=== PATIENT | female | born 1955 | race Caucasian/White ===

== ENCOUNTER → 2016-09-26 | Outpatient (CLI) | payer OTHER ==
[2016-09-26 15:56] LABS: Basophils % (A) 0 %; CHCM 33.5; Eosinophils # (A) 0.1 k/uL (0-0.7); Eosinophils % (A) 2 %; HCT 39.6 % (34.0-46.0); HDW 2.82; HGB 13.2 gm/dL (11.4-16.0); Luc # (Auto) 0.15; Luc % (Auto) 3; Lymphocytes # (A) 0.8 k/uL (1.0-4.8); Lymphocytes % (A) 16 %; MCH 34.1 pg (25.0-35.0); MCHC 33.3 g/dL (31.0-37.0); MCV 102.2 fL (80.0-100.0); Macrocytosis Slight; Mean Platelet Volume 8.2; Monocytes # (A) 0.3 k/uL (0-1.0); Monocytes % (A) 6 %; Neutrophils # (A) 3.7 k/uL (1.3-7.7); Neutrophils % (A) 72 %; RBC 3.88 m/uL (3.80-5.40); RDW 12.7 % (11.5-15.5); WBC 5.1 k/uL (3.8-10.6); WBC (Perox) 5.54
[2016-09-26 16:11] LABS: Chloride 104 mmol/L (98-107); Glucose 84 mg/dL (74-99); Sodium 142 mmol/L (137-145); Total Protein 7.2 g/dL (6.3-8.2)
[2016-09-26 16:12] LABS: ALT 24 U/L (9-52); AST 37 U/L (14-36); Alkaline Phosphatase 75 U/L (38-126); Anion Gap 8 mmol/L; Blood Urea Nitrogen 12 mg/dL (7-17); Carbon Dioxide 30 mmol/L (22-30); Non-African American GFR(MDRD) >60 (>60 ml/min/1.73 sqM); Potassium 4.5 mmol/L (3.5-5.1); Total Bilirubin 0.4 mg/dL (0.2-1.3)
== END | disposition home or self-care (01) ==
LOC: LABWHC1 15:31
PROVIDERS: ATTEND Internal Medicine Gastroenterology
DX: K50.90 Crohn's disease, unspecified, without complications (principal)
CPT/HCPCS: 36415; 80053; 85025

== ENCOUNTER → 2017-01-26 | Outpatient (CLI) | payer OTHER ==
[2017-01-26 14:51] LABS: Basophils % (A) 0 %; CH 33.3; Eosinophils # (A) 0.1 k/uL (0-0.7); Eosinophils % (A) 2 %; HCT 39.1 % (34.0-46.0); HDW 2.76; HGB 13.5 gm/dL (11.4-16.0); Luc % (Auto) 2; Lymphocytes % (A) 19 %; MCHC 34.5 g/dL (31.0-37.0); MCV 98.6 fL (80.0-100.0); Mean Platelet Volume 7.8; Monocytes # (A) 0.4 k/uL (0-1.0); Monocytes % (A) 7 %; Neutrophils # (A) 3.9 k/uL (1.3-7.7); Neutrophils % (A) 70 %; RBC 3.97 m/uL (3.80-5.40); RDW 12.9 % (11.5-15.5); WBC 5.6 k/uL (3.8-10.6); WBC (Perox) 5.58
[2017-01-26 15:04] LABS: ALT 33 U/L (9-52); AST 31 U/L (14-36); Alkaline Phosphatase 72 U/L (38-126); Anion Gap 10 mmol/L; Blood Urea Nitrogen 11 mg/dL (7-17); C Reactive Protein <5.0 mg/L (<10.0); Calcium 8.9 mg/dL (8.4-10.2); Carbon Dioxide 27 mmol/L (22-30); Chloride 104 mmol/L (98-107); Glucose 80 mg/dL (74-99); Non-African American GFR(MDRD) >60 (>60 ml/min/1.73 sqM); Potassium 4.4 mmol/L (3.5-5.1); Sodium 141 mmol/L (137-145); Total Bilirubin 0.3 mg/dL (0.2-1.3); Total Protein 7.2 g/dL (6.3-8.2)
[2017-01-26 15:34] LABS: Erythrocyte Sedimentation Rate 18 mm/hr (0-20)
== END | disposition home or self-care (01) ==
LOC: LABWHC1 14:35
PROVIDERS: ATTEND Internal Medicine Gastroenterology
DX: K50.90 Crohn's disease, unspecified, without complications (principal)
CPT/HCPCS: 36415; 80053; 85025; 85652; 86140

== ENCOUNTER → 2017-02-09 | Outpatient (CLI) | payer OTHER ==
[2017-02-09 15:47] LABS: Appearance,Urine Clear (Clear); Bilirubin,Urine Negative (Negative); Glucose,Urine (UA) Negative (Negative); Ketones,Urine Negative (Negative); Leukocyte Esterase,Urine Negative (Negative); Nitrite,Urine Negative (Negative); Protein,Urine Negative (Negative); Specific Gravity,Urine 1.002 (1.001-1.035); UA Billing (MACRO vs. MICRO) CHEM; Urobilinogen,Urine <2.0 mg/dL (<2.0)
== END ==
LOC: LABWHC1 15:24
PROVIDERS: ATTEND Obstetrics & Gynecology
DX: R39.11 Hesitancy of micturition (principal)
CPT/HCPCS: 81003; 87086

== ENCOUNTER → 2017-04-18 | Outpatient (CLI) | payer OTHER ==
--- NOTE | 2017-04-18 15:54 | XR ---
Abdomen HISTORY: Stone Frontal view of the abdomen correlated to prior exam 07/26/2010 Surgical clip persists in the right upper quadrant. NG tube has been removed. There is a spinal curva ture present. Probable vascular calcifications are present within the pelvis. There is no evident bow el obstruction or pneumoperitoneum. Amorphous metallic densities in the right hemipelvis is indetermi cash, I question prior surgery, correlate. Lung bases are not included on the exam. IMPRESSION: Nonobstructive bowel gas pattern and additional findings above.
== END | disposition home or self-care (01) ==
LOC: RADXRMAIN 15:15
PROVIDERS: ATTEND Urology
DX: N20.0 Calculus of kidney (principal)
CPT/HCPCS: 74000

== ENCOUNTER → 2017-07-04 | Outpatient (CLI) | payer OTHER ==
--- NOTE | 2017-07-04 13:44 | MR ---
EXAMINATION TYPE: MR cervical spine wo con DATE OF EXAM: 07/04/2017 1:25 PM COMPARISON: NONE HISTORY: Neck Pain Multiplanar MultiSpin echo imaging of the cervical spine was performed. Comparison: none C2-C3: No evidence for degenerative disc disease. No disc bulge/herniation or protrusion. No Canal stenosis. Foramina are patent bilaterally. C3-C4: Mild disc desiccation mild circumferential disc bulge. Mild effacement ventral thecal sac. No evidence for herniation or protrusion. No central stenosis. Degenerative change cervical apophyseal j oints with mild left foraminal encroachment. C4-C5: Mild disc desiccation mild circumferential disc bulge. Mild effacement ventral thecal sac. No evidence for herniation or protrusion. No central stenosis. Degenerative change cervical apophyseal j oints with mild left foraminal encroachment. C5-C6: Moderate disc desiccation. Posterocentral disc bulge with partial encapsulating spur resulting in disc endplate complex. Effacement of the ventral thecal sac with mild constriction seen resulting in borderline stenosis. Degenerative change cervical apophyseal joints resulting in bilateral forami nal encroachment right greater than left. C6-C7: Mild to moderate the disc desiccation. The posterior disc bulge with encapsulating spur result ing in disc endplate complex. Mild effacement ventral thecal sac. No evidence for central stenosis. F oramina are patent bilaterally. C7-T1: No evidence for degenerative disc disease. No disc bulge/herniation or protrusion. No Canal stenosis. Foramina are patent bilaterally. Cervical segments are intact. There is normal alignment. Cervical spinal cord is of normal signal. Craniovertebral junction relationships are within normal limits. IMPRESSION: 1. Multilevel degenerative disc disease. 2. Disc bulging with disc endplate complex as outlined above. Borderline to mild central stenosis at C5-6.
--- NOTE | 2017-07-04 15:23 | MR ---
EXAMINATION TYPE: MR lumbar spine wo/w con DATE OF EXAM: 07/04/2017 COMPARISON: NONE HISTORY: Lumbar Pain CONTRAST: 5.5 mL intravenous Gadavist. TECHNIQUE: Multiplanar, multisequence images of the lumbar spine were acquired. FINDINGS: L5-S1: There is loss of disc height to this level. No significant disc bulge is evident. Facets are n ormal. No spinal canal stenosis or neural foraminal stenosis is present. L4-L5: Mild residual disc bulge with narrowing of the disc height is present. This has mild anterior thecal sac flattening. Mild facet hypertrophy is present with right ligamentum flavum laxity with pos terior lateral thecal sac compression. No spinal canal stenosis present. Neural foramen are patent. L3-L4: Broad-based disc bulge is present with moderate anterior thecal sac flattening. Facet hypertro phy is present with posterior lateral thecal sac compression from ligamentum flavum laxity. This is g reater on the left than the right. Some lateral canal narrowing is present. No AP spinal canal stenos is is present. Foramen are patent. L2-L3: Some subtle asymmetric right paracentral disc bulging is present with mild anterior thecal sac compression. No spinal canal stenosis present. Facet hypertrophy and ligamentum flavum laxity is pre sent with mild posterior lateral thecal sac compression. Neural foramen are patent. L1-L2: Mild disc bulge has anterior thecal sac contact. No spinal canal stenosis or neural foraminal stenosis is present. T12-L1: No significant focal disc herniation or significant disc bulge is evident. No spinal canal st enosis present. Minimal ligamentum flavum laxity is present. There is heterogenous signal throughout the osseous structures compatible some marrow replacement. Pacheco spicious enhancement is not identified. IMPRESSION: 1. Broad-based disc bulge L3-4 with moderate anterior thecal sac compression. Facet hypertrophy and w ent flavum laxity are present with some lateral canal narrowing is present at this level. 2. Multilevel degenerative disc changes and disc desiccation without stenosis. 3. Mild right paracentral disc bulge L2-3 with mild anterior thecal sac compression.
== END | disposition home or self-care (01) ==
LOC: RADMRIMAIN 12:14
PROVIDERS: ATTEND Orthopaedic Surgery Orthopaedic Surgery of the Spine
DX: M48.02 Spinal stenosis, cervical region (principal); M50.11 Cervical disc disorder with radiculopathy, high cervical region; M48.061 Spinal stenosis, lumbar region without neurogenic claudication; M51.16 Intervertebral disc disorders with radiculopathy, lumbar region; M47.26 Other spondylosis with radiculopathy, lumbar region; M89.38 Hypertrophy of bone, other site
CPT/HCPCS: 72141; 72158; A9581

== ENCOUNTER → 2017-07-14 | Outpatient (CLI) | payer OTHER ==
--- NOTE | 2017-07-18 07:04 | US ---
EXAMINATION TYPE: US pelvic complete DATE OF EXAM: 07/14/2017 COMPARISON: CT CLINICAL HISTORY: R10.2 Pelvic Pain. Pt states pelvic pain, known h/o fibroids TECHNIQUE: Transabdominal (TA) Date of LMP: pt states 10 yrs ago EXAM MEASUREMENTS: Uterus: 6.8 x 3.3 x 4.8 cm Endometrial Stripe: 0.4 cm Right Ovary: 1.9 x 1.0 x 1.3 cm Left Ovary: 1.5 x 1.4 x 0.9 cm 1. Uterus: Anteverted Heterogeneous, two probable fibroids 1)= 2.6 x 2.0 x 2.0 cm (posterior camila l) 2)= 2.4 x 2.2 x 2.3 cm (central fundal). 2. Endometrium: scant amount of fluid within canal, otherwise appeared wnl 3. Right Ovary: wnl 4. Left Ovary: wnl 5. Bilateral Adnexa: wnl, many peristalsing bowel loops visualized 6. Posterior cul-de-sac: wnl IMPRESSION: 1. Posterior fundal and central fundal likely intramural uterine leiomyomas measuring up to 2.6 cm. 2. Endometrial thickness and ovaries are within normal limits.
== END | disposition home or self-care (01) ==
LOC: RADUSWWP 15:29
PROVIDERS: ATTEND Obstetrics & Gynecology
DX: R10.2 Pelvic and perineal pain (principal)
CPT/HCPCS: 76856

== ENCOUNTER → 2017-11-08 | Day surgery (SDC) | payer OTHER ==
[2017-11-02 10:42] VITALS: BMI 20.5
[~2017-11-08] MED LIST: MIDAZOLAM 2 MG/2 ML VIAL IVP ONE; MIDAZOLAM 2 MG/2 ML VIAL ONE; SODIUM CHLORIDE 0.9% 1,000 ML IV ONE; fentaNYL (PF) 50 MCG/ML 2 ML AMP ONE
[2017-11-08 12:24] VITALS: RESP 18
[2017-11-08] MEDS: BENZOCAINE SPRAY 1 CAN MUCOUS MEM ONE ×2 (13:10→13:14)
[2017-11-08] MEDS: fentaNYL (PF) 50 MCG/ML 2 ML AMP IVP ONE ×2 (13:14→13:26)
[2017-11-08] MEDS: MIDAZOLAM 2 MG/2 ML VIAL IVP ONE ×2 (13:14→13:16)
--- NOTE | 2017-11-08 14:09 | ECHOT ---
TRANSESOPHAGEAL ECHOCARDIOGRAM DATE OF SERVICE: November 08, 2017 PERFORMING PHYSICIAN: Donell Muller MD, seam stayer. PROCEDURE PERFORMED: Transesophageal echocardiogram. INDICATION: This is a pleasant 62-year-old female patient who does have moderate mitral regurgitation and mitral valve prolapse along with SVT, was experiencing progressive in the shortness of breath. On physical examination, the pansystolic murmur was more prominent. Because of that, a transesophageal echocardiogram was recommended for further evaluation of the mitral valve. COMPLICATION: None. LEVEL OF SEDATION: Moderate with sedation length of 15 minutes. PROCEDURE DESCRIPTION: After obtaining an informed consent, explaining the procedure, benefits, risks, complications and alternatives, the patient was brought to the transesophageal echocardiogram suite. A pulse oximetry and heart rate monitors were attached to the patient prior to the procedure. The patient's throat was sprayed using lidocaine locally. Following that, the patient was turned into left lateral position. A bite guard was placed and the patient was then sedated with the above doses of Versed and fentanyl in divided doses. Following that, the transesophageal echocardiogram probe was advanced through the bite guard into the mid esophagus where 2-D echocardiogram images as well as color Doppler images of various cardiac structures were obtained. We evaluated the interatrial septum using 2-D echocardiogram, color Doppler, and contrast study. The procedure was completed. There were no complications. FINDINGS: The left ventricular dimension and systolic function appeared to be within normal limits. The ejection fraction appeared to be in the range of 55% to 60%. Right ventricle appeared to be within normal limits for dimension as well as function. The left atrium appeared to be mildly dilated. The right atrium appeared to be within normal limits. The left atrial appendage appeared to be free from any thrombus. The interatrial septum appeared to be intact without any evidence of shunt. The aortic valve is trileaflet valve without stenosis with mild insufficiency. The mitral valve seems to be thickened and calcified with evidence of mitral valve prolapse and vi mitral valve leaflets especially the anterior mitral leaflets with evidence of severe mitral regurgitation with very eccentric posteriorly directed jet. The tricuspid valve and pulmonic valve appear to be within normal limits. CONCLUSION: 1. Myxomatous mitral valve with evidence of mitral valve prolapse with prolapsing of the anterior mitral leaflet and severe mitral regurgitation with posteriorly directed jet. 2. Normal left ventricular dimension and systolic function with ejection fraction of 55%. 3. Overall normal cardiac chamber sizes beside mild left atrial dilatation. 4. Normal left atrial appendage without any evidence of thrombus. 5. Intact interatrial septum without any evidence of shunt. 6. Normal trileaflet aortic valve with mild aortic valve regurgitation and without stenosis. 7. Normal tricuspid valve and pulmonic valve. 8. Normal aortic root dimension. 9. No evidence of pericardial effusion. MMODL / IJN: [id number] /
[2017-11-08 14:33] VITALS: TEMP 98
[2017-11-08 14:53] VITALS: BP 155/70; PULSE 62
== END | disposition home or self-care (01) ==
LOC: CATHCVL 11:41
PROVIDERS: ATTEND Internal Medicine Interventional Cardiology
DX: I34.1 Nonrheumatic mitral (valve) prolapse (principal); I34.0 Nonrheumatic mitral (valve) insufficiency; I47.1 Supraventricular tachycardia; Z88.8 Allergy status to other drugs, medicaments and biological substances; Z79.899 Other long term (current) drug therapy
CPT/HCPCS: 93312; 93320; 93325; J2250; J3010

== ENCOUNTER → 2017-11-16 | Outpatient (CLI) | payer OTHER ==
[2017-11-16 17:39] LABS: HGB 12.4 gm/dL (11.4-16.0); MCH 32.5 pg (25.0-35.0); MCHC 33.7 g/dL (31.0-37.0); MCV 96.6 fL (80.0-100.0); Mean Platelet Volume 6.9; Platelet Count 240 k/uL (150-450); RBC 3.83 m/uL (3.80-5.40); RDW 12.6 % (11.5-15.5); WBC 4.6 k/uL (3.8-10.6)
[2017-11-16 18:01] LABS: Anion Gap 11 mmol/L; Blood Urea Nitrogen 9 mg/dL (7-17); Carbon Dioxide 31 mmol/L (22-30); Chloride 101 mmol/L (98-107); Potassium 4.1 mmol/L (3.5-5.1); Sodium 143 mmol/L (137-145)
== END | disposition home or self-care (01) ==
LOC: LABPAT 17:04
PROVIDERS: ATTEND Internal Medicine Interventional Cardiology
DX: Z01.812 Encounter for preprocedural laboratory examination (principal); I34.0 Nonrheumatic mitral (valve) insufficiency
CPT/HCPCS: 80051; 82565; 84520; 85027

== ENCOUNTER → 2017-11-22 | Day surgery (SDC) | payer OTHER ==
[2017-11-20 09:15] VITALS: BMI 20.5
[~2017-11-22] MED LIST changes: +ALPRAZolam 0.25 MG TAB PO PRN; +ALPRAZolam 0.5 MG TAB PO PRN; +ASPIRIN 325 MG TAB PO STA; +ATORVASTATIN 80 MG TAB PO STA; -MIDAZOLAM 2 MG/2 ML VIAL IVP ONE; -MIDAZOLAM 2 MG/2 ML VIAL ONE; +NITROGLYCERIN SL TABS 0.4 MG TAB SUBLINGUAL PRN; -SODIUM CHLORIDE 0.9% 1,000 ML IV ONE; +SODIUM CHLORIDE 0.9% 1,000 ML in EMPTY BAG 1 BAG IV ONE; -fentaNYL (PF) 50 MCG/ML 2 ML AMP ONE
[2017-11-22 11:01] VITALS: BP 121/63; PULSE 61; RESP 20; TEMP 97.9
== END ==
LOC: CATHCVL 10:40
PROVIDERS: ATTEND Internal Medicine Interventional Cardiology
DX: I34.0 Nonrheumatic mitral (valve) insufficiency (principal); Z53.8 Procedure and treatment not carried out for other reasons

== ENCOUNTER → 2017-12-04 | Outpatient (CLI) | payer OTHER ==
--- NOTE | 2017-12-04 17:04 | BD ---
EXAMINATION TYPE: Axial Bone Density DATE OF EXAM: 12/04/2017 COMPARISON: 2016 CLINICAL HISTORY: 62-year-old female postmenopausal screening, disorder of bone Height: 5'4 1/2 Weight: 124 FRAX RISK QUESTIONS: History of Fracture in Adulthood: y Secondary Osteoporosis: RISK FACTORS HISTORY OF: History of Wrist Fracture: rt When: 2011 Surgery to (right/)/Wrist ): y When: 2011 Family History of Osteoporosis: y Postmenopausal woman: y MEDICATIONS: Osteoporosis Medications: Which medication: Reclast How Lon years Additional Medications: heart, Additional History: Crohn's EXAM MEASUREMENTS: Bone mineral densitometry was performed using the [employer] System. Bone mineral density as measured about the Lumbar spine is: ----- L1-L4(G/cm2): 1.345 T Score Values are as follows: ----- L2: 0.9 ----- L3: 1.9 ----- L4: 1.2 ----- L1-L4:1.4 Bone mineral density has: Increased 2.8% since study of: 11/04/2015 Bone mineral density about the R hip (g/cm2): 0.728 Bone mineral density about the L hip (g/cm2): 0.749 T Score values are as follows: -----R Neck: -2.2 -----L Neck: -2.1 -----R Total: -1.7 -----L Total: -1.8 Bone mineral density has: Increased 0.1% since study of: 11/04/2015 IMPRESSION: Osteopenia (T Score between -2.5 and -1). There is slightly increased risk of fracture and the patient may be considered for treatment. Re-Screen 2-5 years. NOTE: T-SCORE=SD OF THE YOUNG ADULT MEAN.
== END | disposition home or self-care (01) ==
LOC: RADBDWWP 15:01
PROVIDERS: ATTEND Obstetrics & Gynecology
DX: M85.80 Other specified disorders of bone density and structure, unspecified site (principal)
CPT/HCPCS: 77080

== ENCOUNTER 2017-12-05 09:51 | Day surgery (SDC) | payer OTHER ==
[2017-11-29 14:54] VITALS: BMI 20.5
[~2017-12-05 09:51] MED LIST changes: -ALPRAZolam 0.25 MG TAB PO PRN; -ALPRAZolam 0.5 MG TAB PO PRN; -NITROGLYCERIN SL TABS 0.4 MG TAB SUBLINGUAL PRN
[2017-12-05] MEDS ORDERED: SODIUM CHLORIDE 0.9% 1,000 ML IV ONE ×2 (10:15→10:35)
[2017-12-05] MEDS ORDERED: VERAPAMIL 2.5 MG/ML 2 ML AMP ONE (10:36)
[2017-12-05] MEDS ORDERED: LIDOCAINE 2% INJ 20 MG/ML (20 ML MDV) ONE (10:36)
[2017-12-05] MEDS ORDERED: HEPARIN SODIUM 1,000 UN/ML (10ML VL) ONE (10:36)
[2017-12-05] MEDS ORDERED: MIDAZOLAM 2 MG/2 ML VIAL ONE (10:37)
[2017-12-05] MEDS: MIDAZOLAM 2 MG/2 ML VIAL IVP ONE ×2 (10:41→10:45)
[2017-12-05] MEDS ORDERED: LIDOCAINE 2% INJ 20 MG/ML SQ ONE (10:43)
[2017-12-05] MEDS ORDERED: HEPARIN SODIUM 1,000 UN/ML (10ML VL) IV ONE (10:44)
[2017-12-05] MEDS: VERAPAMIL SYRINGE (5 MG/10 ML) INTRAARTER ONE ×2 (10:45→10:55)
[2017-12-05] MEDS ORDERED: IOPAMIDOL-370 125ML BTL INJ ONE (10:54)
[2017-12-05 11:40] VITALS: RESP 16; TEMP 97.3
[2017-12-05] MEDS ORDERED: ACETAMINOPHEN TAB 500 MG TAB PO PRN (11:47)
--- NOTE | 2017-12-05 11:59 | CC ---
CARDIAC CATHETERIZATION REPORT DATE OF SERVICE: 12/05/2017 PERFORMING PHYSICIAN: Donell Muller MD, high heel builder. PROCEDURE PERFORMED: 1. Selective right and left coronary angiogram. 2. Left heart catheterization. 3. Left ventriculography. INDICATION: This is a pleasant 62-year-old female patient who was diagnosed recently with severe symptomatic mitral regurgitation. She is going to have mitral valve repair or replacement and the heart catheterization is to rule out any severe underlying coronary artery disease. APPROACH: Right radial artery. COMPLICATION: None. LEVEL OF SEDATION: Moderate with sedation length of 15 minutes. PROCEDURE DESCRIPTION: After obtaining an informed consent, the patient was brought to the cardiac pathology laboratory director. The right radial artery was cannulated using micropuncture technique, the micropuncture wire passed easily then I placed a 6-Peruvian sheath in the right radial artery and subsequently I gave the patient 2 mg of verapamil IA and 10,000 units of heparin IV. After that, I did selective right and left coronary angiogram using JR4 and JL3.5 catheters. Left heart catheterization and left ventriculography was performed using 6- Peruvian pigtail catheter. The procedure was completed without any complication. SELECTIVE CORONARY ANGIOGRAM: 1. The right coronary artery is a large caliber vessel and it is a dominant vessel. The RCA is angiographically normal. It bifurcates distally into PDA and PLV branches, both are angiographically normal. 2. The left main is angiographically normal. It bifurcates into left circumflex and left anterior descending artery. 3. The left circumflex is a large caliber vessel. It is a nondominant vessel. The left circumflex itself is angiographically normal. 4. The LAD is a large caliber vessel as well. The LAD is angiographically normal. It gives rise into 2 diagonal branches, they are angiographically normal. HEMODYNAMICS: The left ventricular end-diastolic pressure was about mmHg and no gradient was identified across the aortic valve. There was about 3+ MR seen. The MR was quite eccentric. CONCLUSION: 1. Normal coronary angiogram. 2. Normal left ventricular systolic function. 3. A 3+ mitral regurgitation. POSTPROCEDURE MANAGEMENT: Medical treatment and follow up with the patient. MMODL / IJN: [id number] /
[2017-12-05] MEDS ORDERED: SODIUM CHLORIDE 0.9% 1,000 ML IV SCH (12:00)
[2017-12-05 14:10] VITALS: BP 112/62; PULSE 61
== END 2017-12-05 16:20 | disposition home or self-care (01) ==
LOC: CATHCVL 09:51 → 3OBS 10:56 → CATHCVL 16:20
PROVIDERS: ATTEND Internal Medicine Interventional Cardiology
DX: I34.0 Nonrheumatic mitral (valve) insufficiency (principal); I47.1 Supraventricular tachycardia; Z79.899 Other long term (current) drug therapy; Z88.8 Allergy status to other drugs, medicaments and biological substances
CPT/HCPCS: 93458; C1894; J2001; J2250; J1644; Q9967

== ENCOUNTER → 2018-03-14 | Outpatient (CLI) | payer OTHER ==
[2018-03-14 13:58] LABS: HCT 33.7 % (34.0-46.0); HGB 10.9 gm/dL (11.4-16.0); Hypochromasia Moderate; MCH 31.2 pg (25.0-35.0); MCHC 32.3 g/dL (31.0-37.0); MCV 96.4 fL (80.0-100.0); Platelet Count 249 k/uL (150-450); RDW 13.5 % (11.5-15.5); WBC 6.5 k/uL (3.8-10.6)
[2018-03-14 14:21] LABS: Anion Gap 7 mmol/L; Blood Urea Nitrogen 12 mg/dL (7-17); Calcium 9.3 mg/dL (8.4-10.2); Carbon Dioxide 29 mmol/L (22-30); Chloride 103 mmol/L (98-107); Glucose 81 mg/dL (74-99); Potassium 4.5 mmol/L (3.5-5.1); Sodium 139 mmol/L (137-145)
== END | disposition home or self-care (01) ==
LOC: LABWHC1 13:22
PROVIDERS: ATTEND Internal Medicine Cardiovascular Disease
DX: D64.9 Anemia, unspecified (principal)
CPT/HCPCS: 36415; 80048; 85027

== ENCOUNTER → 2018-05-14 | Outpatient (CLI) | payer OTHER ==
[2018-05-14 18:05] LABS: Basophils % (A) 0 %; Eosinophils # (A) 0.2 k/uL (0-0.7); Eosinophils % (A) 4 %; HGB 10.9 gm/dL (11.4-16.0); Hypochromasia Moderate; Lymphocytes # (A) 0.7 k/uL (1.0-4.8); Lymphocytes % (A) 17 %; MCH 29.7 pg (25.0-35.0); MCHC 31.1 g/dL (31.0-37.0); MCV 95.4 fL (80.0-100.0); Monocytes # (A) 0.3 k/uL (0-1.0); Monocytes % (A) 8 %; Neutrophils # (A) 2.9 k/uL (1.3-7.7); Neutrophils % (A) 69 %; Platelet Count 249 k/uL (150-450); RBC 3.66 m/uL (3.80-5.40); RDW 14.3 % (11.5-15.5); WBC 4.2 k/uL (3.8-10.6)
[2018-05-14 18:58] LABS: Erythrocyte Sedimentation Rate 25 mm/hr (0-20)
[2018-05-15 04:11] LABS: ALT 18 U/L (8-44); AST 31 U/L (13-35); Albumin/Globulin Ratio 1.71 (1.20-2.10); Alkaline Phosphatase 62 U/L (41-126); C Reactive Protein <0.4 mg/dL (0.0-0.8); Calcium 8.9 mg/dL (8.7-10.3); Chloride 110 mmol/L (96-109); Globulin 2.4 g/dL (2.1-3.7); Glucose 78 mg/dL (70-110); Potassium 4.7 mmol/L (3.5-5.5); Sodium 139 mmol/L (135-145); Total Bilirubin 0.3 mg/dL (0.3-1.2); Total Protein 6.5 g/dL (6.2-8.2)
== END | disposition home or self-care (01) ==
LOC: LABWHC1 17:17
PROVIDERS: ATTEND Internal Medicine Gastroenterology
DX: R00.0 Tachycardia, unspecified (principal); K50.90 Crohn's disease, unspecified, without complications
CPT/HCPCS: 36415; 80053; 84443; 85025; 85652; 86140

== ENCOUNTER → 2018-06-19 | Outpatient (CLI) | payer OTHER ==
[~2018-06-19] MED LIST changes: -ASPIRIN 325 MG TAB PO STA; -ATORVASTATIN 80 MG TAB PO STA; -SODIUM CHLORIDE 0.9% 1,000 ML in EMPTY BAG 1 BAG IV ONE; +SODIUM CHLORIDE 0.9% 500 ML 500 ML in EMPTY BAG 1 BAG IV PRN; +ZOLEDRONIC ACID 5 MG in SODIUM CHLORIDE 0.9% 100 ML IV NR
[2018-06-19 14:56] VITALS: BP 132/79; PULSE 87; RESP 16; TEMP 97.7
== END | disposition home or self-care (01) ==
LOC: PROCWHC3 13:53
PROVIDERS: ATTEND Internal Medicine Rheumatology
DX: M81.0 Age-related osteoporosis without current pathological fracture (principal)
CPT/HCPCS: 96365; J3489

== ENCOUNTER → 2018-11-12 | Outpatient (CLI) | payer OTHER ==
[2018-11-12 17:42] LABS: Basophils % (A) 0 %; Eosinophils # (A) 0.1 k/uL (0-0.7); Eosinophils % (A) 3 %; HCT 32.7 % (34.0-46.0); HGB 10.1 gm/dL (11.4-16.0); Hypochromasia Marked; Lymphocytes # (A) 0.5 k/uL (1.0-4.8); Lymphocytes % (A) 16 %; MCH 26.7 pg (25.0-35.0); MCHC 30.8 g/dL (31.0-37.0); MCV 86.8 fL (80.0-100.0); Mean Platelet Volume 7.8; Monocytes # (A) 0.3 k/uL (0-1.0); Monocytes % (A) 10 %; Neutrophils % (A) 67 %; Platelet Count 224 k/uL (150-450); RBC 3.77 m/uL (3.80-5.40); RDW 14.8 % (11.5-15.5)
[2018-11-12 19:25] LABS: Erythrocyte Sedimentation Rate 35 mm/hr (0-20)
[2018-11-13 00:32] LABS: Albumin 4.2 g/dL (3.80-4.90); Albumin/Globulin Ratio 1.83 (1.60-3.17); Anion Gap 7.3 mmol/L (4.00-12.00); Calcium 8.8 mg/dL (8.7-10.3); Carbon Dioxide 27.7 mmol/L (21.6-31.8); Globulin 2.3 g/dL (1.6-3.3); Potassium 4.3 mmol/L (3.5-5.5); Total Bilirubin 0.2 mg/dL (0.3-1.2); Total Protein 6.5 g/dL (6.2-8.2)
== END ==
LOC: LABWHC1 16:59
PROVIDERS: ATTEND Internal Medicine Gastroenterology
DX: K50.90 Crohn's disease, unspecified, without complications (principal)
CPT/HCPCS: 36415; 80053; 85025; 85652; 86140

== ENCOUNTER → 2019-03-15 | Outpatient (CLI) | payer OTHER ==
--- NOTE | 2019-03-17 06:57 | CT ---
EXAMINATION TYPE: CT brain wo con DATE OF EXAM: 03/15/2019 COMPARISON: Headaches, visual disturbances sinus congestion HISTORY: Episodes of dizziness and visual disturbance. Sinus congestion. CT DLP: 1168 mGycm Automated exposure control for dose reduction was used. TECHNIQUE: CT scan of the head is performed without contrast. FINDINGS: There is no acute intracranial hemorrhage or midline shift identified. There is diffuse v entricular and sulcal prominence consistent with diffuse age-related cerebral atrophy. There is low- attenuation in the periventricular white matter consistent with chronic small vessel ischemic change. Incidentally noted basal ganglia calcifications bilaterally. The globes are intact and the visualize d sinuses are clear at this time. IMPRESSION: 1. No acute intracranial hemorrhage or midline shift. 2. Mild burden nonspecific white matter change, most commonly on the basis of chronic microangiopathy . 3. Paranasal sinuses appear well aerated and orbits appear unremarkable on CT. If there is further co ncern MRI could be considered.
--- NOTE | 2019-03-17 07:08 | US ---
EXAMINATION TYPE: US carotid duplex BILAT DATE OF EXAM: 03/15/2019 COMPARISON: NONE CLINICAL HISTORY: R51 Headaches. Dizziness, vision changes EXAM MEASUREMENTS: RIGHT: Peak Systolic Velocity (PSV) cm/sec ----- Right CCA: 64.2 ----- Right ICA: 83.4 ----- Right ECA: 74.7 ICA/CCA ratio: 1.3 RIGHT: End Diastole cm/sec ----- Right CCA: 11.9 ----- Right ICA: 28.4 ----- Right ECA: 0.0 LEFT: Peak Systolic Velocity (PSV) cm/sec ----- Left CCA: 77.3 ----- Left ICA: 88.6 ----- Left ECA: 68.6 ICA/CCA ratio: 1.1 LEFT: End Diastole cm/sec ----- Left CCA: 11.9 ----- Left ICA: 31.4 ----- Left ECA: 0.0 VERTEBRALS (direction of flow): Right Vertebral: Antegrade Left Vertebral: Antegrade Rhythm: Normal No significant stenosis seen, Incidental finding sub-centimeter nodules right thyroid IMPRESSION: 1. Mild degree of grayscale atheromatous plaquing with no sonographically evident hemodynamically sig nificant stenosis within either visualized carotid arterial system. 2. Incidentally noted right thyroid nodules. Thyroid ultrasound could further assess the thyroid glan d. Criteria for Assigning % of Stenosis / Diameter reduction (Estimation based on the indirect measurements of the internal carotid artery velocities (ICA PSV). 1. Normal (no stenosis)=ICA PSV < 125 cm/s: ratio < 2.0: ICA EDV<40 cm/s. 2. Less than 50% stenosis=ICA PSV < 125 cm/s: ratio < 2.0: ICA EDV<40 cm/s. 3. 50 to 69% stenosis=ICA PSV of 125 to 230 cm/s: ration 2.0 ? 4.0: ICA EDV 40-100 cm/s. 4. Greater than 70% stenosis to near occlusion= ICA PSV > 230 cm/s: ratio > 4.0: ICA EDV > 100 cm/s. 5. Near occlusion= ICA PSV velocities may be low or undetectable: variable ratio and ICA EDV. 6. Total occlusion=unable to detect flow.
== END | disposition home or self-care (01) ==
LOC: RADCTMAIN 16:51
PROVIDERS: ATTEND Family Medicine
DX: R90.89 Other abnormal findings on diagnostic imaging of central nervous system (principal); I65.23 Occlusion and stenosis of bilateral carotid arteries
CPT/HCPCS: 70450; 93880

== ENCOUNTER 2019-08-02 09:43 | Day surgery (SDC) | payer OTHER ==
[2019-07-31 15:43] VITALS: BMI 20.6
[~2019-08-02 09:43] MED LIST changes: +LACTATED RINGERS 1,000 ML IV SCH; +LIDOCAINE 1% 20 ML VIAL (10MG/ML) FOR IV START INTRADERMA PRN; -SODIUM CHLORIDE 0.9% 500 ML 500 ML in EMPTY BAG 1 BAG IV PRN; -ZOLEDRONIC ACID 5 MG in SODIUM CHLORIDE 0.9% 100 ML IV NR
[2019-08-02 10:03] VITALS: TEMP 98.9
[2019-08-02 10:09] LABS: Glucose,Whole Blood 80 mg/dL (75-99)
[2019-08-02] MEDS ORDERED: PROPOFOL 10 MG/ML 20 ML VIAL IV ONE (10:44)
[2019-08-02] MEDS ORDERED: LIDOCAINE 1% INJ 10MG/ML (20 ML MDV) ONE (10:44)
[2019-08-02 11:13] VITALS: RESP 18
--- NOTE | 2019-08-02 11:21 | P.PCN ---
Date of Procedure: 08/02/19 Procedure(s) Performed: BRIEF HISTORY: Patient is a 64-year-old pleasant white female scheduled for an elective colonoscopy as a part of evaluation long-standing history of Crohn's disease involving the small bowel in the rectum and is about 25 years ago. She had 2 small bowel resections in the past. She is presently maintained on stellara every 8 weeks. She is scheduled for a surveillance colonoscopy today. PROCEDURE PERFORMED: Colonoscopy with biopsy. PREOPERATIVE DIAGNOSIS: Long Standing history of Crohn's ileocolitis. IV sedation per Anesthesia. PROCEDURE: After informed consent was obtained, the patient, was brought into the endoscopy unit. IV sedation was administered by Anesthesia under continuous monitoring. Digital rectal examination was normal. Initially the Olympus CF-160 flexible video colonoscope was then inserted in the rectum, gradually advanced into the right colon with ileocolonic anastomosis was visualized that had circumferential erythema with ulcerations at the anastomosis. There was some stricture of the anastomosis and the scope could not be advanced into the distal ileum. Mucosa of the transverse colon, descending colon, sigmoid colon, appeared normal. There was active colitis with mild mucosal erythema and multiple pseudopolyps noted in the entire rectum up to 15 cm from the anal verge and multiple biopsies were done from this area. The patient tolerated the procedure well. IMPRESSION: Erythema and ulceration and narrowing at the ileocolic anastomosis in the right colon status post biopsy Mild proctitis with multiple pseudopolyps involving the entire rectum up to 15 cm from the anal verge status post biopsy Rest of the colon appeared normal RECOMMENDATIONS: Findings of this examination were discussed with the patient as well as a family. She was advised to follow with the biopsy results. She will continue with her current medications..
[2019-08-02 11:33] VITALS: BP 116/71; PULSE 64
== END 2019-08-02 12:02 | disposition home or self-care (01) ==
LOC: ORWHC2ENDO 09:43
PROVIDERS: ATTEND Internal Medicine Gastroenterology
DX: Z12.11 Encounter for screening for malignant neoplasm of colon (principal); K51.00 Ulcerative (chronic) pancolitis without complications; K62.89 Other specified diseases of anus and rectum; I34.1 Nonrheumatic mitral (valve) prolapse; J45.909 Unspecified asthma, uncomplicated; M19.90 Unspecified osteoarthritis, unspecified site; F41.9 Anxiety disorder, unspecified; K21.9 Gastro-esophageal reflux disease without esophagitis; Z79.899 Other long term (current) drug therapy; Z87.19 Personal history of other diseases of the digestive system; Z90.49 Acquired absence of other specified parts of digestive tract; K91.89 Other postprocedural complications and disorders of digestive system; Z88.8 Allergy status to other drugs, medicaments and biological substances; Z98.0 Intestinal bypass and anastomosis status; Z88.5 Allergy status to narcotic agent; Z79.82 Long term (current) use of aspirin
CPT/HCPCS: 88305; 45380; J2001; J2704

== ENCOUNTER → 2021-07-02 | Outpatient (CLI) | payer MEDICARE, OTHER ==
[2021-07-02 13:49] LABS: African American GFR (CKD) >90 (>60 ml/min/1.73 sqM); Blood Urea Nitrogen 12 mg/dL (7-17); Non-African American GFR(CKD) >90 (>60 ml/min/1.73 sqM)
--- NOTE | 2021-07-02 14:33 | CT ---
EXAMINATION TYPE: CT sinus wo con DATE OF EXAM: 07/02/2021 COMPARISON: None HISTORY: 731.6 CT DLP: Facial pain and pressure, pressure behind right eye. Pain around left upper wisdom tooth. mGy cm. Automated Exposure Control for Dose Reduction was Utilized. TECHNIQUE: CT scan of the sinuses is performed without contrast, axial images are obtained, coronal r eformatted images are also reviewed. FINDINGS: The paranasal sinuses including the frontal, ethmoid, sphenoid, and maxillary sinuses bila terally are well-aerated without abnormal opacification. The ostiomeatal complex is patent bilateral ly on the coronal images. Nasal septal deviation noted. Visualized portion of mastoid air cells show no abnormal opacification. The globes are intact bilate rally. IMPRESSION: 1. The sinuses are clear and the ostiomeatal complex is patent bilaterally. 2. Periapical lucency around posterior molar or wisdom tooth on the left could be related to periodon usha disease correlate clinically.
--- NOTE | 2021-07-02 14:37 | CT ---
EXAMINATION TYPE: CT brain wo/w con DATE OF EXAM: 07/02/2021 COMPARISON: CT brain March 15, 2019 HISTORY: Headaches, pain and burning to top of head, pressure behind right eye. CT DLP: 2126.1 mGycm Automated exposure control for dose reduction was used. CONTRAST: CT scan of the head is performed without and with IV Contrast, patient injected with 100 mL of Isovue M300. FINDINGS: Noncontrast images show no acute intracranial hemorrhage or midline shift. Mild ventricular and sulca l prominence is present. Postcontrast images show no suspicious enhancing masses. Jacobs-white matter d ifferentiation fairly well-preserved. The globes are intact and the visualized sinuses are clear. IMPRESSION: No suspicious new or acute findings evident.
== END | disposition home or self-care (01) ==
LOC: RADCTMAIN 13:05
PROVIDERS: ATTEND Otolaryngology
DX: R51.9 Headache, unspecified (principal)
CPT/HCPCS: 82565; 84520; 70470; 36415; 70486; Q9967

== ENCOUNTER 2022-01-09 15:15 | Observation (INO) | payer MEDICARE, OTHER ==
[2022-01-09] MEDS ORDERED: ASPIRIN 81 MG PO STA (15:41)
--- NOTE | 2022-01-09 16:01 | ED ---
Chest Pain HPI - General Chief Complaint: Chest Pain Stated Complaint: Chest pain/SOB Time Seen by Provider: 01/09/22 15:41 Source: patient, RN notes reviewed Mode of arrival: ambulatory Limitations: no limitations - History of Present Illness Initial Comments: This a 67-year-old female presents emergency Department with chief complaint of chest pain. Patient states his symptoms have been going on for a while worsening. Patient states she initially start PCP recommended to go to the emergency Department. She declined time and follow-up with Dr. Muller who did a one-day Holter monitor. Patient is now scheduled for stress test, echocardiogram. Patient was advised to return if symptoms start again she noticed some pain in her chest, pressure feeling noticed to have some jaw, shoulder pain. Patient states she initially that is related to her asthma felt short of breath. Patient is not taking blood thinners. Patient has had history of atrial fibrillation, mitral valve replacement - Related Data Home Medications Medication Instructions Recorded Confirmed Omeprazole [PriLOSEC] 20 mg PO HS 06/08/15 08/02/19 Calcium/Magnesium/Zinc 2 tab PO BID 10/28/15 08/02/19 [Npxylmu-Ayfbyamkb-Fzgl Tablet] Cholecalciferol [Vitamin D3 (25 1,000 units PO QAM 10/28/15 08/02/19 Mcg = 1000 Iu)] Vitamin E 400 unit PO QAM 10/28/15 08/02/19 Metoprolol Succinate [Toprol XL] 25 mg PO TID 07/15/16 08/02/19 Acetaminophen [Tylenol] 500 mg PO Q4-6H PRN 11/02/17 08/02/19 ALPRAZolam [Xanax] 1 mg PO TID PRN 11/20/17 08/02/19 Aspirin 325 mg PO ONCE 11/22/17 08/02/19 Furosemide [Lasix] 20 mg PO DAILY PRN 07/31/19 08/02/19 Ustekinumab [Stelara] 90 mg SQ Q56D 07/31/19 08/02/19 predniSONE 5 mg PO DAILY 07/31/19 08/02/19 Allergies Allergy/AdvReac Type Severity Reaction Status Date / Time azathioprine [From Imuran] AdvReac WBC were Verified 01/09/22 15:36 depleted azathioprine sodium AdvReac WBC were Verified 01/09/22 15:36 [From Imuran] depleted morphine AdvReac Nausea Verified 01/09/22 15:36 Review of Systems ROS Statement: Those systems with pertinent positive or pertinent negative responses have been documented in the HPI. ROS Other: All systems not noted in ROS Statement are negative. EKG Findings - EKG Comments: EKG Findings:: EKG performed at 15:42 sinus rhythm rate of 63 WV 154 QRS 86 QT/QTC 407/450 Past Medical History Past Medical History: Asthma, Deep Vein Thrombosis (DVT), GERD/Reflux, Mitral Valve Prolapse (MVP), Osteoarthritis (OA) Additional Past Medical History / Comment(s): seasonal asthma, has headaches & back pain. Heart Murmur, Crohns disease. DVT-RT LEG History of Any Multi-Drug Resistant Organisms: None Reported Past Surgical History: Back Surgery, Bowel Resection, Cholecystectomy, Orthopedic Surgery Additional Past Surgical History / Comment(s): Colonoscopy, Laminectomy, Surgery x 3 for Crohns disease, Plate in R forearm., MITRAL VALVE REPLACEMENT 01/16/2018 Past Anesthesia/Blood Transfusion Reactions: Previous Problems w/ Anesthesia Additional Past Anesthesia/Blood Transfusion Reaction / Comment(s): States had problems yrs. ago with shaking and chills when waking up from anesthesia. Past Psychological History: Anxiety Smoking Status: Never smoker Past Alcohol Use History: Occasional Past Drug Use History: None Reported - Past Family History Mother Family Medical History: No Reported History General Exam Limitations: no limitations General appearance: alert, in no apparent distress Head exam: Present: atraumatic, normocephalic, normal inspection Eye exam: Present: normal appearance, PERRL, EOMI. Absent: scleral icterus, conjunctival injection, periorbital swelling ENT exam: Present: normal exam, normal oropharynx, mucous membranes moist Neck exam: Present: normal inspection, full ROM. Absent: tenderness, meningismus, lymphadenopathy Respiratory exam: Present: normal lung sounds bilaterally. Absent: respiratory distress, wheezes, rales, rhonchi, stridor Cardiovascular Exam: Present: regular rate, normal rhythm, normal heart sounds. Absent: systolic murmur, diastolic murmur, rubs, gallop, clicks Back exam: Absent: CVA tenderness (R), CVA tenderness (L) Neurological exam: Present: alert Skin exam: Present: warm, dry, intact, normal color. Absent: rash Course Vital Signs 01/09/22 15:33 Temperature 97.9 F Pulse Rate 70 Respiratory 16 Rate Blood Pressure 135/70 O2 Sat by Pulse 100 Oximetry Chest Pain MDM - MDM 67-year-old female presented emergency from for chest pain. Patient has been having increasing depressive symptoms scheduled for stress test. Patient be admitted for cardiac rule out consult to cardiology. Disposition Clinical Impression: Chest pain Disposition: ADMITTED IP TO THIS HOSP Condition: Fair Referrals: Rika Arevalo MD [Primary Care Provider] - 1-2 days Time of Disposition: 18:02
--- NOTE | 2022-01-09 16:19 | XR ---
EXAMINATION TYPE: XR chest 2V DATE OF EXAM: 01/09/2022 COMPARISON: 08/07/2015 HISTORY: Chest pain TECHNIQUE: 2 views FINDINGS: Heart is normal. Lungs are clear of infiltrate. No heart failure. No hilar masses. There is some mild pulmonary hyperinflation. IMPRESSION: There is probably COPD. No acute lung disease. There is clearing of atelectasis right mid lung compared to old exam.
[2022-01-09 16:37] LABS: Basophils # (A) 0.1 k/uL (0-0.2); Basophils % (A) 2 %; Eosinophils # (A) 0.1 k/uL (0-0.7); Eosinophils % (A) 2 %; HCT 42.3 % (34.0-46.0); HGB 14.1 gm/dL (11.4-16.0); Lymphocytes # (A) 0.8 k/uL (1.0-4.8); Lymphocytes % (A) 15 %; MCH 34.6 pg (25.0-35.0); MCHC 33.4 g/dL (31.0-37.0); MCV 103.6 fL (80.0-100.0); Macrocytosis Slight; Mean Platelet Volume 7.7; Monocytes # (A) 0.3 k/uL (0-1.0); Monocytes % (A) 5 %; Neutrophils # (A) 4.1 k/uL (1.3-7.7); Neutrophils % (A) 75 %; Platelet Count 182 k/uL (150-450); RBC 4.08 m/uL (3.80-5.40); RDW 11.6 % (11.5-15.5); WBC 5.5 k/uL (3.8-10.6)
[2022-01-09 16:51] LABS: ALT 15 U/L (4-34); AST 31 U/L (14-36); African American GFR (CKD) >90 (>60 ml/min/1.73 sqM); Albumin 4.3 g/dL (3.5-5.0); Alkaline Phosphatase 72 U/L (38-126); Anion Gap 6 mmol/L; Blood Urea Nitrogen 10 mg/dL (7-17); Calcium 8.7 mg/dL (8.4-10.2); Carbon Dioxide 30 mmol/L (22-30); Chloride 102 mmol/L (98-107); Glucose 84 mg/dL (74-99); INR 0.9 (<1.2); Magnesium 2.1 mg/dL (1.6-2.3); Non-African American GFR(CKD) >90 (>60 ml/min/1.73 sqM); Partial Thromboplastin Time 23.6 sec (22.0-30.0); Potassium 3.9 mmol/L (3.5-5.1); Prothrombin Time 10.2 sec (9.0-12.0); Sodium 138 mmol/L (137-145); Total Bilirubin 0.3 mg/dL (0.2-1.3); Total Protein 7.1 g/dL (6.3-8.2)
--- NOTE | 2022-01-09 17:59 | CT ---
EXAMINATION TYPE: CT chest angio for PE DATE OF EXAM: 01/09/2022 COMPARISON: None HISTORY: SOB, eleavted d-dimer CT DLP: 203.5 mGycm Automated exposure control for dose reduction was used. CONTRAST: Performed with IV Contrast, patient injected with 100 mL of Isovue 370. There are Three-D postprocessed images. There is some pulmonary hyperinflation with flattening of the diaphragm. The lungs are clear of conso lidation. No pleural effusion. Heart size is normal. No pericardial effusion. There is no mediastinal adenopathy. There are no hilar masses. There is normal contrast opacification of the pulmonary arteries. No filling defect. The thoracic spine is intact. Sternum is intact. No ao rtic aneurysm or dissection. IMPRESSION: No evidence of pulmonary embolism. There is evidence for some COPD. No suspicious pulmonary mass.
[2022-01-09] MEDS ORDERED: NITROGLYCERIN SL TABS 0.4 MG TAB SUBLINGUAL PRN (18:03)
[2022-01-09] MEDS ORDERED: ALPRAZolam 0.5 MG TAB PO STA (20:56)
[2022-01-09] MEDS ORDERED: PANTOPRAZOLE 40 MG TABLET PO SCH (21:00)
[2022-01-10] MEDS ORDERED: ALPRAZolam 0.5 MG TAB PO PRN (01:48)
--- NOTE | 2022-01-10 01:53 | P.HPIM ---
History of Present Illness H&P Date: 01/09/22 Chief Complaint: chest pain 67 years old female with atrial fibrillation, mitral valve replacement, Crohn's disease Patient comes in due to worsening chest pain she reports having chest pain for long time now off-and-on she's been following up outpatient with cardiology and primary care doctor and she was told to come to the hospital if pain gets worse she reports that she came in initially on however the ER was busy so decided to leave and then today she felt that the pain episodes was getting more frequent and worse usually associated with activity she describes it as chest pain across her chest with radiation to the jaw and left shoulder associated with some trouble breathing and palpitations usually goes away with rest. She's been following up with cardiology who performed a Holter monitor she claims that there was negative and then was planning to have an echo and stress test done soon first week of January but decided to come in today due to worsening more frequent episodes of pain Otherwise denies any fevers or chills denies any GI bleeding denies any nausea vomiting denies any urinary changes. Initial workup in the ED showed elevated d-dimer CT angios the chest was negative for acute PE Troponins are negative chest x-ray no acute pathology Review of Systems Pertinent positives as noted in HPI. All other systems were reviewed and are negative Past Medical History Past Medical History: Asthma, Deep Vein Thrombosis (DVT), GERD/Reflux, Mitral Valve Prolapse (MVP), Osteoarthritis (OA) Additional Past Medical History / Comment(s): seasonal asthma, has headaches & back pain. Heart Murmur, Crohns disease. DVT-RT LEG History of Any Multi-Drug Resistant Organisms: None Reported Past Surgical History: Back Surgery, Bowel Resection, Cholecystectomy, Orthopedic Surgery Additional Past Surgical History / Comment(s): Colonoscopy, Laminectomy, Surgery x 3 for Crohns disease, Plate in R forearm., MITRAL VALVE REPLACEMENT 01/16/2018 Past Anesthesia/Blood Transfusion Reactions: Previous Problems w/ Anesthesia Additional Past Anesthesia/Blood Transfusion Reaction / Comment(s): States had problems yrs. ago with shaking and chills when waking up from anesthesia. Past Psychological History: Anxiety Smoking Status: Never smoker Past Alcohol Use History: Occasional Past Drug Use History: None Reported - Past Family History Mother Family Medical History: No Reported History Medications and Allergies Home Medications Medication Instructions Recorded Confirmed Type Omeprazole [PriLOSEC] 20 mg PO HS 11/23/15 06/26/22 History Metoprolol Succinate [Toprol XL] 25 mg PO DAILY 07/15/16 01/09/22 History Acetaminophen [Tylenol] 500 mg PO Q4-6H PRN 11/02/17 01/09/22 History ALPRAZolam [Xanax] 0.5 - 1 mg PO TID PRN 11/20/17 01/09/22 History Furosemide [Lasix] 10 mg PO DAILY PRN 07/31/19 01/09/22 History Ustekinumab [Stelara] 90 mg SQ Q56D 07/31/19 01/09/22 History Aspirin EC [Ecotrin Low Dose] 81 mg PO DAILY 01/09/22 01/09/22 History Fluticasone Nasal [place] [Flonase 1 spray EA NOSTRIL DAILY PRN 01/09/22 01/09/22 History Nasal [place]] predniSONE 4 mg PO DAILY 01/09/22 01/09/22 History Allergies Allergy/AdvReac Type Severity Reaction Status Date / Time azathioprine [From Imuran] AdvReac WBC were Verified 01/09/22 18:32 depleted azathioprine sodium AdvReac WBC were Verified 01/09/22 18:32 [From Imuran] depleted morphine AdvReac Nausea Verified 01/09/22 18:32 Physical Exam Vitals: Vital Signs Temp Pulse Pulse Resp BP BP Pulse Ox 01/09/22 20:00 70 01/09/22 19:14 97.8 F 60 16 144/67 99 01/09/22 18:34 68 18 128/78 98 01/09/22 15:33 97.9 F 70 16 135/70 100 Intake and Output 01/09/22 01/09/22 01/10/22 14:59 22:59 06:59 Intake Total 500 Balance 500 Intake: Oral 500 Other: Voiding Method Toilet # Voids 1 Weight 54.431 kg Constitutional: No acute distress, conversant, pleasant Eyes: Anicteric sclerae, moist conjunctiva, Pupils equal round reactive to light ENMT: NC/AT Oropharynx clear, no erythema, or exudates Neck: Supple, FROM, no masses, or JVD No carotid bruits No thyromegaly Lungs: Clear to auscultation Clear to percussion Normal respiratory effort, no accessory muscle use Cardiovascular: Heart regular in rate and rhythm, No murmurs, gallops, or rubs No peripheral edema Abdominal: Soft Nontender, no guarding, rebound or rigidity Abdomen moving with respiration Normoactive bowel sounds No hepatomegaly, No splenomegaly No palpable mass No abdominal wall hernia noted Skin: Normal temperature, tone, texture, turgor No induration No subcutaneous nodules No rash, lesions No ulcers Extremities: No digital cyanosis No clubbing Pedal pulses intact and symmetrical Radial pulses intact and symmetrical No calf tenderness Psychiatric: Alert and oriented to person, place and time Appropriate affect fair judgement Neuro Muscles Strength 5/5 in all 4 extremities Sensation to light touch grossly present throughout Cranial nerves II-XII grossly intact No focal sensory deficits Lymphatics: no palpable cervical or supraclavicular , or inguinal lymph nodes Results CBC & Chem 7: 01/09/22 16:18 01/09/22 16:18 Labs: Abnormal Lab Results - Last 24 Hours (Table) 01/09/22 01/09/22 Range/Units 16:18 16:18 MCV 103.6 H (80.0-100.0) fL Lymphocytes # 0.8 L (1.0-4.8) k/uL D-Dimer 1.05 H (<0.60) mg/L FEU Thrombosis Risk Factor Assmnt - Choose All That Apply Any of the Below Risk Factors Present?: No Each Risk Factor Represents 2 Points: Age 61-74 years Each Risk Factor Represents 3 Points: History of DVT/PE Thrombosis Risk Factor Assessment Total Risk Factor Score: 5 Thrombosis Risk Factor Assessment Level: High Risk Assessment and Plan Assessment: atypical chest pain rule out ACS EKG no acute changes CXR no acute pathology trops negative monitor and storage bin tender monitor vital signs ASA, statin cardiology consult A1c, lipid panel , TSH pain control Chronic conditions Mitral valve replacement Questionable history of A. fib, not on blood thinners Crohn's disease DVT prophylaxis heparin subcu 3 times a day Full code Despite length of stay less than 2 midnights
[2022-01-10] MEDS ORDERED: IPRATROPIUM-ALBUTEROL 3 ML NEB INHALATION PRN (01:58)
[2022-01-10] MEDS: ACETAMINOPHEN TAB 500 MG TAB PO PRN ×2 (02:34→08:05)
[2022-01-10 07:46] VITALS: BP 120/73; PULSE 65; RESP 18; TEMP 97.6
[2022-01-10] MEDS ORDERED: HEPARIN SODIUM,PORCINE/PF 5,000 UNIT/0.5 ML SYRINGE SQ SCH (08:00)
[2022-01-10] MEDS ORDERED: METOPROLOL SUCCINATE (ER) 25 MG TAB.ER.24H PO SCH (09:00)
[2022-01-10] MEDS ORDERED: ASPIRIN 325 MG TAB PO SCH (09:00)
[2022-01-10 09:42] LABS: BUN/Creat Ratio 14.13 Ratio (12.00-20.00); Blood Urea Nitrogen 11.3 mg/dL (9.0-27.0); Carbon Dioxide 29.1 mmol/L (20.0-27.5); Chloride 107 mmol/L (96-109); Chol/HDL Ratio 2.19 Ratio; Glucose 80 mg/dL (70-110); Non-African American GFR(CKD) 76.8 (60.0-200.0); Potassium 4.5 mmol/L (3.5-5.5); Sodium 144 mmol/L (135-145); VLDL Calculation 17.88 mg/dL (5.00-40.00)
--- NOTE | 2022-01-10 09:44 | P.PN ---
Objective - Vital Signs Vital signs: Vital Signs Temp 97.6 F 01/10/22 07:00 Pulse 65 01/10/22 07:00 Resp 18 01/10/22 07:00 BP 120/73 01/10/22 07:00 Pulse Ox 95 01/10/22 07:00 FiO2 Intake & Output 01/09/22 01/10/22 01/10/22 18:59 06:59 18:59 Intake Total 500 Balance 500 Weight 54.431 kg 54.431 kg Intake: Oral 500 Other: Voiding Method Toilet # Voids 1 - Labs CBC & Chem 7: 01/09/22 16:18 01/10/22 06:18 Labs: Abnormal Lab Results - Last 24 Hours (Table) 01/09/22 01/09/22 01/10/22 Range/Units 16:18 16:18 06:18 MCV 103.6 H (80.0-100.0) fL Lymphocytes # 0.8 L (1.0-4.8) k/uL D-Dimer 1.05 H (<0.60) mg/L FEU Carbon Dioxide 29.1 H (20.0-27.5) mmol/L Anion Gap 7.90 L (10.00-18.00) mmol/L HDL Cholesterol 71.10 H (40.00-60.00) mg/dL
--- NOTE | 2022-01-10 11:45 | CONS ---
CONSULTATION CHIEF COMPLAINT: Chest pain and palpitations. HISTORY OF PRESENT ILLNESS: Arabella is a 67-year-old lady with history of mitral regurgitation status post mitral valve replacement, who presented to the hospital complaining of chest discomfort. She describes it as sharp precordial pain that prevents her from taking a deep breath in. She also palpitation, but she is not sure why. She apparently had a monitor and was told it is unremarkable. She was seen by Dr. Muller, her primary clerical order filler and is scheduled for a stress test and echocardiogram. In the meantime, her symptoms got worse and she got admitted to hospital and got admitted. At the time of my evaluation this morning, patient appears comfortable at rest and free of significant cardiac symptoms. She has had extensive cardiac workup so far. EKG does not reveal acute ischemic changes. Monitor did not reveal any cardiac arrhythmia. Cardiac enzymes have been negative. The patient had an elevated D-dimer and went on to have a CT scan of the chest that was negative for pulmonary embolus. I advised the patient to undergo a stress echo and echocardiogram to evaluate the prosthetic valve. The patient had a cardiac catheterization in 2018, which did not reveal significant obstructive CAD. PAST MEDICAL HISTORY: Significant for severe mitral regurgitation status post mitral valve replacement with a bioprosthetic valve, hypertension, and anxiety. Past medical history is also significant for Crohn's disease. MEDICATIONS: Medications at home included Flonase, Prilosec, Toprol, Lasix, aspirin, Tylenol and Xanax. ALLERGIES: ALLERGIC TO IMURAN AND MORPHINE. FAMILY HISTORY: Negative for premature coronary artery disease. SOCIAL HISTORY: Negative for smoking, EtOH abuse or drug abuse. REVIEW OF SYSTEMS: HEENT is unremarkable. CARDIAC as described above. RESPIRATORY as described above. GI negative. negative. ALLERGY/IMMUNOLOGY: Negative. SKIN negative. MUSCULOSKELETAL negative. DERM: Negative. CONSTITUTIONAL negative. ONCOLOGICAL negative. COMPUTER SUPPORT ANALYST negative. EXAM: She appears comfortable at rest. Vital signs are stable. There is no jugular venous distention. Carotid upstroke is normal. There is no bruit. Chest exam reveals good air entry bilaterally. Heart exam reveals first and second heart sounds. No gallop. No murmur. No rub. Abdomen is soft, nontender. Examination of extremities did not reveal any edema. Peripheral pulses are felt. COMPUTER SUPPORT ANALYST exam did not reveal focal neurological deficits. LAB: Show a hemoglobin of 14.1, platelet count is 180. Potassium is 3.9, creatinine is 0.6. Troponins are negative. BNP is normal. D-dimer was elevated at [address] scan of the chest was negative. ASSESSMENT AND PLAN: 1. Precordial chest pain. 2. Palpitations. 3. Mitral regurgitation status post mitral valve replacement. PLAN: Myocardial infarction is ruled out. Chest discomfort is sharp and atypical. No cardiac arrhythmia had been documented. I will obtain a stress test and echocardiogram for further evaluation. MMODL / IJN: [id number] /
--- NOTE | 2022-01-10 12:18 | CA ---
Transthoracic Echo Report Name: Arabella Watson Age: 67 Gender: F : 1955 Exam Date: 01/10/2022 07:44 Exam Location: [facility] Ht (in): 65 Wt (lb): 120 Ordering Physician: Rene Byrne Attending/Referring Phys: Joe Riojas MD [employer] Designer Bertha Mathis RDCS Procedure CPT: Indications: Chest Pain Cardiac Hx: Hx of mitral valve replacement Technical Quality: Good Contrast 1: Total Dose (mL): Contrast 2: Total Dose (mL): MEASUREMENTS (Male / Female) Normal Values 2D ECHO LV Diastolic Diameter PLAX 4.2 cm 4.2 - 5.9 / 3.9 - 5.3 cm LV Systolic Diameter PLAX 2.3 cm IVS Diastolic Thickness 0.5 cm 0.6 - 1.0 / 0.6 - 0.9 cm LVPW Diastolic Thickness 1.0 cm 0.6 - 1.0 / 0.6 - 0.9 cm LV Relative Wall Thickness 0.4 RV Internal Dim ED PLAX 2.7 cm M-MODE Aortic Root Diameter MM 2.9 cm LA Systolic Diameter MM 3.1 cm LA Ao Ratio MM 1.1 AV Cusp Separation MM 1.9 cm DOPPLER AV Peak Velocity 97.2 cm/s AV Peak Gradient 3.8 mmHg AI Peak Velocity 178.9 cm/s AI Peak Gradient 12.8 mmHg AI Pressure Half Time 965.0 ms MV Peak Velocity 168.2 cm/s MV Peak Gradient 11.3 mmHg MV Mean Velocity 79.4 cm/s MV Mean Gradient 3.1 mmHg MV Velocity Time Integral 49.4 cm MV Area PHT 3.6 cm??? Mitral E Point Velocity 164.0 cm/s Mitral A Point Velocity 88.6 cm/s Mitral E to A Ratio 1.9 MV Deceleration Time 209.9 ms MV E' Velocity 6.3 cm/s Mitral E to MV E' Ratio 26.1 TR Peak Velocity 228.9 cm/s TR Peak Gradient 21.0 mmHg Right Ventricular Systolic Press 24.5 mmHg FINDINGS Left Ventricle Left ventricular ejection fraction is estimated at 50-55 %. Left ventricular cavity size normal. Grade 1 diastolic dysfunction. Right Ventricle The right ventricle is normal in size and function. Right Atrium The right atrium is normal in size. Left Atrium The left atrium is normal in size. Mitral Valve Normally functioning prosthetic mitral valve. . There is no mitral regurgitation. Aortic Valve Structurally normal aortic valve without significant sclerosis or stenosis. There is a trace of aortic regurgitation. Tricuspid Valve Structurally normal tricuspid valve without significant stenosis. Pulmonary artery systolic pressure is normal. Mild tricuspid regurgitation. Pulmonic Valve Structurally normal pulmonic valve without significant stenosis. There is no pulmonic regurgitation. Pericardium Normal pericardium without effusion. Aorta Normal aortic root dimension. CONCLUSIONS Normal LV systolic function Normally functioning bioprosthetic valve in mitral position Previewed by: Dr. Pérez Dubon MD (Electronically Signed) Final Date: 10 January 2022 12:17
--- NOTE | 2022-01-10 13:42 | P.DS ---
Providers Date of admission: 01/09/22 18:09 Expected date of discharge: 01/10/22 Attending physician: Vika Mata MD Consults: 01/09/22 18:03 Consult Physician Urgent Consulting Provider: Donell Muller Consult Reason/Comments: chest pain Do you want consulting provider notified?: Yes Primary care physician: [facility] Hospital Course: Hospital course summary 67 years old female with atrial fibrillation, mitral valve replacement, Crohn's disease Patient comes in due to worsening chest pain she reports having chest pain for long time now off-and-on she's been following up outpatient with cardiology and primary care doctor and she was told to come to the hospital if pain gets worse she reports that she came in initially on however the ER was busy so decided to leave and then today she felt that the pain episodes was getting more frequent and worse usually associated with activity she describes it as chest pain across her chest with radiation to the jaw and left shoulder associated with some trouble breathing and palpitations usually goes away with rest. She's been following up with cardiology who performed a Holter monitor she claims that there was negative and then was planning to have an echo and stress test done soon first week of January but decided to come in today due to worsening more frequent episodes of pain .Otherwise denies any fevers or chills denies any GI bleeding denies any nausea vomiting denies any urinary changes. Initial workup in the ED showed elevated d-dimer CT angios the chest was negative for acute PE. Troponins are negative chest x-ray no acute pathology Patient was seen by cardiology who recommended doing an electrocardiogram and a stress test, both studies were negative for any significant finding. Patient is currently chest pain-free and is stable to be discharged back to home. Physical examination General: non toxic, no acute distress, alert oriented to time place and person Head: atraumatic, normocephalic, symmetric Eyes: no lid lesion], anicteric sclera Mouth: no lip lesion, mucus membranes moist Cardiovascular: S1S2 reg rate and rhythm, no murmur, no gallop Lungs: Bilateral equal air entry, no wheezing no rhonchi no crackles. Abdominal: soft, nontender to palpation, no guarding, no appreciable organomegaly Ext: no gross muscle atrophy, no edema extremities warm to suppose a positive Neuro: Alert oriented to time place and person, exam grossly nonfocal Psych: Mood and affect appropriate, patient not so certain Skin exam: No rashes no jaundice. Patient Condition at Discharge: Fair Plan - Discharge Summary Discharge Rx Participant: Yes New Discharge Prescriptions: Continue Omeprazole [PriLOSEC] 20 mg PO HS Metoprolol Succinate [Toprol XL] 25 mg PO DAILY Acetaminophen [Tylenol] 500 mg PO Q4-6H PRN PRN Reason: Pain ALPRAZolam [Xanax] 0.5 - 1 mg PO TID PRN PRN Reason: Anxiety Ustekinumab [Stelara] 90 mg SQ Q56D Furosemide [Lasix] 10 mg PO DAILY PRN PRN Reason: Edema predniSONE 4 mg PO DAILY Aspirin EC [Ecotrin Low Dose] 81 mg PO DAILY Fluticasone Nasal [place] [Flonase Nasal [place]] 1 spray EA NOSTRIL DAILY PRN PRN Reason: Allergy Symptoms Discharge Medication List Omeprazole [PriLOSEC] 20 mg PO HS 06/08/15 [History] Metoprolol Succinate [Toprol XL] 25 mg PO DAILY 07/15/16 [History] Acetaminophen [Tylenol] 500 mg PO Q4-6H PRN 11/02/17 [History] ALPRAZolam [Xanax] 0.5 - 1 mg PO TID PRN 11/20/17 [History] Furosemide [Lasix] 10 mg PO DAILY PRN 07/31/19 [History] Ustekinumab [Stelara] 90 mg SQ Q56D 07/31/19 [History] Aspirin EC [Ecotrin Low Dose] 81 mg PO DAILY 01/09/22 [History] Fluticasone Nasal [place] [Flonase Nasal [place]] 1 spray EA NOSTRIL DAILY PRN 01/09/22 [History] predniSONE 4 mg PO DAILY 01/09/22 [History] Follow up Appointment(s)/Referral(s): Donell Muller MD [Family Provider] - 1 Week Rika Arevalo MD [Primary Care Provider] - 1 Week Patient Instructions/Handouts: Chest Pain (DC), Cardiac Stress Test (DC) Activity/Diet/Wound Care/Special Instructions: Resume General diet and regular home activities Discharge Disposition: HOME SELF-CARE Plan of Treatment: Follow up with primary care physician
--- NOTE | 2022-01-10 14:47 | ECHOS ---
STRESS ECHOCARDIOGRAM INDICATION: Chest pain. BASELINE HEART RATE: 61 BASELINE BLOOD PRESSURE: 107/51 MAXIMUM HEART RATE: 137 MAXIMUM BLOOD PRESSURE: 162/68 85% MPHR: 131 100% MPHR: 154 METS: 10.3 MAXIMUM STAGE REACHED: 3 TOTAL EXERCISE TIME: 9:00 RESULTS: Baseline EKG shows sinus rhythm, normal axis, normal intervals. Patient exercised on Jam protocol for a total of 9 minutes achieving 10 METS, 85% of predicted maximal heart rate, without chest pain or diagnostic ST-segment depression. Baseline echo shows normal left ventricular size, wall motion, systolic function. Postexercise there is normal hyperdynamic response of all segments of myocardium noted. CONCLUSIONS: 1. Negative stress test by EKG criteria. 2. Negative stress echo. MMODL / IJN: [id number] /
[2022-01-10] MEDS ORDERED: ATORVASTATIN 20 MG TAB PO SCH (21:00)
== END 2022-01-10 14:30 | disposition home or self-care (01) ==
LOC: EC 15:15 → 6NMEDSUR 18:09
PROVIDERS: ADMIT Internal Medicine; ATTEND Internal Medicine
DX: R07.2 Precordial pain (principal); R00.2 Palpitations; R79.89 Other specified abnormal findings of blood chemistry; I34.1 Nonrheumatic mitral (valve) prolapse; K21.9 Gastro-esophageal reflux disease without esophagitis; I10 Essential (primary) hypertension; M19.90 Unspecified osteoarthritis, unspecified site; K50.90 Crohn's disease, unspecified, without complications; J45.909 Unspecified asthma, uncomplicated; F41.9 Anxiety disorder, unspecified; Z79.82 Long term (current) use of aspirin; Z79.52 Long term (current) use of systemic steroids; Z79.899 Other long term (current) drug therapy; Z88.5 Allergy status to narcotic agent; Z88.8 Allergy status to other drugs, medicaments and biological substances; Z86.718 Personal history of other venous thrombosis and embolism; Z90.49 Acquired absence of other specified parts of digestive tract; Z86.711 Personal history of pulmonary embolism; Z95.2 Presence of prosthetic heart valve; Z98.890 Other specified postprocedural states
CPT/HCPCS: 96372; 99285; 36415; 93005; 93306; 93351; 85379; 83880; 80061; 80053; 80048; 84443; 83735; 84484; 85025; 85610; 85730; 83036; 71046; 71275; G0378 ×2; Q9967; J1644